=== PATIENT | female | born 1935 | race Two or more races ===

== ENCOUNTER 2017-09-29 18:02 | Emergency (ER) | payer MEDICARE, OTHER ==
[~2017-09-29] VITALS: Ht 160 cm; Wt 70.3 kg
[2017-09-29] MEDS ORDERED: SODIUM CHLORIDE 0.9% 1,000 ML IV ONE (19:30)
[2017-09-29] MEDS ORDERED: cefTRIAXone 1GM/10ml IVPUSH 10 ML IV ONE (19:30)
[2017-09-29 20:28] LABS: Albumin 3.2 g/dL (3.4-5.0); BUN/Creatinine Ratio 27.6; Potassium 4.4 mmol/L (3.5-5.1)
[2017-09-29 20:31] LABS: Basophils # (auto) 0.1 uL; Basophils % (auto) 1.1 % (0.0-2.0); Bilirubin, Total 0.3 mg/dL (0.2-1.0); Eosinophils # (auto) 0.4 uL; Eosinophils % (auto) 4.6 % (0.0-7.0); Hematocrit 43.1 % (36.0-46.0); Hemoglobin 13.8 g/dL (12.2-16.2); Lymphocytes # (auto) 2.6 uL; Lymphocytes % (auto) 27.5 % (10.0-50.0); Mean Corpuscular Hgb Conc. 32.1 g/dL (32.0-36.0); Mean Corpuscular Volume 84.1 fL (80.0-100.0); Mean Platelet Volume 8.1 fL (6.9-10.8); Monocytes # (auto) 0.8 uL; Monocytes % (auto) 8.6 % (0.0-12.0); Neutrophils # (auto) 5.6 uL; Neutrophils % (auto) 58.2 % (37.0-80.0); Platelet Count (auto) 306 10^3/uL (140-450); Total Protein 8.1 g/dL (6.4-8.2); White Blood Cell 9.6 10^3/uL (4.4-10.8)
[2017-09-29 20:47] VITALS: BP 133/89
== END 2017-09-29 21:02 | disposition home or self-care (01) ==
LOC: ER 18:02
DX: J06.9 Acute upper respiratory infection, unspecified (principal); J02.9 Acute pharyngitis, unspecified; I25.2 Old myocardial infarction; J45.909 Unspecified asthma, uncomplicated; Z86.73 Personal history of transient ischemic attack (TIA), and cerebral infarction without residual deficits
CPT/HCPCS: 36415; 71010; 80053; 85025; 96374; 99285; J7030

== ENCOUNTER 2018-12-06 08:09 | Emergency (ER) | payer MEDICARE ==
[~2018-12-06] VITALS: Ht 152.4 cm; Wt 72.6 kg
[2018-12-06 08:51] VITALS: BP 154/86
[2018-12-06 09:09] LABS: Urine WBC None Seen /hpf (0 - 5)
[2018-12-06 09:14] LABS: Basophils # (auto) 0.1 uL; Basophils % (auto) 1.6 % (0.0-2.0); Eosinophils # (auto) 0.5 uL; Eosinophils % (auto) 6.3 % (0.0-7.0); Hematocrit 43.3 % (36.0-46.0); Hemoglobin 14.3 g/dL (12.2-16.2); Lymphocytes # (auto) 1.6 uL; Lymphocytes % (auto) 21.7 % (10.0-50.0); Mean Corpuscular Hemoglobin 27.7 pg (28.0-32.0); Mean Corpuscular Hgb Conc. 32.9 g/dL (32.0-36.0); Mean Corpuscular Volume 84.1 fL (80.0-100.0); Monocytes # (auto) 0.7 uL; Monocytes % (auto) 9.9 % (0.0-12.0); Neutrophils # (auto) 4.6 uL; Neutrophils % (auto) 60.5 % (37.0-80.0); Platelet Count (auto) 293 10^3/uL (140-450); Red Blood Cells 5.15 10^6/uL (4.0-5.20); Red Cell Distribution Width 14.5 % (11.8-14.3); White Blood Cell 7.6 10^3/uL (4.4-10.8)
[2018-12-06 09:23] LABS: Urine Bacteria FEW /hpf (None Seen); Urine Blood Negative /uL (Negative); Urine Specific Gravity 1.005 (1.001-1.035)
[2018-12-06 09:29] LABS: Albumin 3.2 g/dL (3.4-5.0); Calcium 8.9 mg/dL (8.5-10.1); Magnesium 2.4 mg/dL (1.6-2.6); Potassium 3.9 mmol/L (3.5-5.1)
[2018-12-06 09:31] LABS: BUN/Creatinine Ratio 16.9
[2018-12-06 09:36] LABS: Bilirubin, Total 0.8 mg/dL (0.2-1.0)
[2018-12-06] MEDS ORDERED: DEXAMETHASONE SOD PHOS 4 MG/1ML SDV INJ IV ONE (10:15)
[2018-12-06] MEDS ORDERED: IPRATROPIUM BROM 0.5 MG/2.5ML INH SOL NEB ONE (10:15)
[2018-12-06] MEDS ORDERED: ALBUTEROL SULF 2.5 MG/0.5ML(0.5%) NEB SOLN NEB ONE (10:15)
== END 2018-12-06 12:52 | disposition home or self-care (01) ==
LOC: ER 08:10
DX: J45.901 Unspecified asthma with (acute) exacerbation (principal); E46 Unspecified protein-calorie malnutrition; I25.2 Old myocardial infarction; I25.10 Atherosclerotic heart disease of native coronary artery without angina pectoris; Z98.61 Coronary angioplasty status; Z68.31 Body mass index [BMI] 31.0-31.9, adult; Z86.73 Personal history of transient ischemic attack (TIA), and cerebral infarction without residual deficits
CPT/HCPCS: 36415; 71045; 80053; 81001; 83735; 83880; 84484; 85025; 93005; 94640; 94761; 96374; 99284; J1100; J7611; J7644

== ENCOUNTER 2018-12-14 09:53 | Inpatient (IN) | payer MEDICARE ==
[~2018-12-14] VITALS: Ht 157.5 cm; Wt 76.9 kg
[2018-12-14 10:37] LABS: Basophils # (auto) 0.1 uL; Basophils % (auto) 0.6 % (0.0-2.0); Eosinophils # (auto) 0.3 uL; Eosinophils % (auto) 2.4 % (0.0-7.0); Hematocrit 47.4 % (36.0-46.0); Hemoglobin 15.5 g/dL (12.2-16.2); Lymphocytes # (auto) 1.5 uL; Lymphocytes % (auto) 13.8 % (10.0-50.0); Mean Corpuscular Hemoglobin 27.7 pg (28.0-32.0); Mean Corpuscular Hgb Conc. 32.6 g/dL (32.0-36.0); Mean Corpuscular Volume 84.7 fL (80.0-100.0); Monocytes # (auto) 0.8 uL; Monocytes % (auto) 7.7 % (0.0-12.0); Neutrophils # (auto) 8.2 uL; Neutrophils % (auto) 75.5 % (37.0-80.0); Platelet Count (auto) 307 10^3/uL (140-450); Red Blood Cells 5.59 10^6/uL (4.0-5.20); Red Cell Distribution Width 14.3 % (11.8-14.3); White Blood Cell 10.8 10^3/uL (4.4-10.8)
[2018-12-14] MEDS ORDERED: ASPirin 81 mg TAB PO ONE ×2 (10:45→11:30)
[2018-12-14 11:00] LABS: Albumin 3.4 g/dL (3.4-5.0); Anion Gap 7 (5-15); Blood Urea Nitrogen 18 mg/dL (7-18); Calcium 9.4 mg/dL (8.5-10.1); Carbon Dioxide 26 mmol/L (21-32); Chloride 105 mmol/L (98-107); Glucose 162 mg/dL (74-106); Potassium 4.2 mmol/L (3.5-5.1); Sodium 138 mmol/L (136-145)
[2018-12-14 11:05] LABS: Alanine Aminotransferase 21 U/L (13-56); Alkaline Phosphatase 81 U/L (45-117); Aspartate Aminotransferase 15 U/L (15-37); BUN/Creatinine Ratio 18.8; Bilirubin, Total 0.7 mg/dL (0.2-1.0); GFR African American 71 mL/min; GFR Non-African American 59 mL/min; Total Protein 8.5 g/dL (6.4-8.2)
[2018-12-14] MEDS ORDERED: ALBUTEROL SULF 2.5 MG/0.5ML(0.5%) NEB SOLN NEB PRN (11:15)
[2018-12-14] MEDS ORDERED: LACTULOSE 20Gm/30ML SOLN PO PRN (11:15)
[2018-12-14] MEDS ORDERED: PROMETHAZINE HCL 25 MG/ML 1ML IV PRN (11:15)
[2018-12-14] MEDS ORDERED: LORazepam 0.5 MG TAB PO PRN (11:15)
[2018-12-14] MEDS ORDERED: TEMAZEPAM 15 MG CAP PO PRN (11:15)
[2018-12-14] MEDS ORDERED: HYDROcodone-ACET 5/325MG TAB PO PRN (11:15)
[2018-12-14] MEDS ORDERED: MORPHINE SULFATE 4 MG/ML SYR/VIAL IV PRN ×2 (11:15)
[2018-12-14] MEDS ORDERED: NITROGLYCERIN 0.4 MG SL TAB SL PRN (11:15)
[2018-12-14] MEDS ORDERED: ACETAMINOPHEN 500 MG TAB PO PRN (11:15)
[2018-12-14] MEDS ORDERED: PANTOPRAZOLE 40 MG TAB PO ONE (11:30)
[2018-12-14] MEDS ORDERED: ENOXAPARIN SOD 40 MG/0.4 ML SYRINGE SC ONE (11:30)
[2018-12-14] MEDS ORDERED: METOPROLOL TARTRATE 25 MG TAB PO ONE (11:30)
[2018-12-14] MEDS ORDERED: NITROGLYCERIN 0.2MG/HR TOPICAL PATCH TD ONE (11:30)
[2018-12-14] MEDS: DOXYCYCLINE 100MG/250ML 250 ML IV SCH ×2 (12:10→23:35)
[2018-12-14] MEDS: SODIUM CHLORIDE 0.9% 1,000 ML IV SCH (12:11)
[2018-12-14 13:00] VITALS: BP 112/76
--- NOTE | 2018-12-14 13:00 | NUR ---
Telemetry admit from [facility] admitted to Telemetry unit after SBAR received. Patient oriented to JULIO BECERRA, primary RN, unit, room, bed, and unit policies regarding patient care and visiting hours. Patient now on continuous telemetry monitoring, tele box # 7 and telemetry reading on arrival to unit is . Patient placed on bedside oxygen, weighed by bed scale and encouraged to call if they need something. All questions and concerns addressed, patient verbalized understanding.
[2018-12-14] MEDS: ALBUTEROL SULF 2.5 MG/0.5ML(0.5%) NEB SOLN NEB SCH ×2 (13:19→18:40)
[2018-12-14] MEDS: IPRATROPIUM BROM 0.5 MG/2.5ML INH SOL NEB SCH ×2 (13:19→18:40)
[2018-12-14] MEDS ORDERED: ASPI81CH43 PO (13:49)
[2018-12-14 13:53] LABS: INR 0.95 (0.9-1.15); Prothrombin Time 10.2 sec (9.27-12.13)
--- NOTE | 2018-12-14 14:17 | NUR ---
Report given to Evin KESSLER.
--- NOTE | 2018-12-14 14:30 | NUR ---
RECEIVED PATIENT FROM [facility] BY WHEELCHAIR ASSISTED BY JULIO KESSLER. PATIENT IS NOW AT 231. TELEMETRY MONITORING BOX PLACED #24, READING IS SINUS RHYTHM. PATIENT'S SON DENG AT BEDSIDE. PATIENT ON ROOM AIR. INSTRUCTED ON POC, WILL ASSUME CARE.
--- NOTE | 2018-12-14 15:00 | NUR ---
FLU SWAB DONE, SENT TO LAB.
--- NOTE | 2018-12-14 15:30 | NUR ---
Dr. Cordero at bedside. Cardiology consult done. Instructed patient for NPO after midnight for stress test tomorrow. 2d-echo ongoing at bedside.
--- NOTE | 2018-12-14 16:20 | NUR ---
RADIO TECH ASSISTED PATIENT TO NM FOR FIRST PART OF STRESS TEST. SAID NO NEED FOR NPO AFTER MIDNIGHT. 2ND PART WILL BE TOMORROW.
[2018-12-14 16:52] VITALS: BP 117/80
--- NOTE | 2018-12-14 16:53 | NUR ---
LEONIDES FROM IN CALLED AND SAID TO MAKE PATIENT NPO AFTER MIDNIGHT. PATIENT MADE AWARE AND VERBALIZED UNDERSTANDING.
--- NOTE | 2018-12-14 19:25 | NUR ---
Opening Shift Note Assumed care of patient, awake and alert x 4. No S/S of distress/SOB or pain. Bed is in lowest position and locked. Call light within reach. Board updated. Tele box monitor matches monitor and leads are in correct placement. Instructed on POC and to call for assist PRN, will continue to monitor for changes Q1hr and PRN.
--- NOTE | 2018-12-14 19:35 | NUR ---
Be hospitalist because patient has an elevated D-Dimer of 4.21. Patient received Lovenox 40 mg SC once. Patient did not receive CT with contrast of bilateral LE ultrasound. Patient was admitted for chest pain and SOB with green sputum. Patient has a history of A-Fib but is currently sinus rhythm and is not taking medication at home for it. Vitals are all currently WNL. Addendum: 12/14/18 at 1938 by JUANCARLOS ROSENTHAL RN Dr. Cordero saw patient and ordered Cardiolite stress test for tomorrow.
--- NOTE | 2018-12-14 21:08 | NUR ---
Dr. Diaz came to round on patient. Orders given: Cardio consult with Dr. Garzon, Lovenox 40 mg SC BID.
[2018-12-14] MEDS: ENOXAPARIN SOD 40 MG/0.4 ML SYRINGE SC SCH (21:57)
[2018-12-14] MEDS: METOPROLOL TARTRATE 25 MG TAB PO SCH (21:58)
[2018-12-14 22:00] VITALS: BP 105/53
[2018-12-14] MEDS ORDERED: ATORVASTATIN 20 MG TAB PO SCH (22:00)
[2018-12-14 22:28] LABS: Urine Bacteria FEW /hpf (None Seen); Urine Blood Negative /uL (Negative); Urine Specific Gravity 1.011 (1.001-1.035); Urine WBC <1 /hpf (0 - 5)
[2018-12-14 22:50] LABS: Alcohol, Urine < 3.0 mg/dL (0-5); Amphetamine Screen, Urine NEGATIVE (NEGATIVE); Barbiturate Scree,Urine NEGATIVE (NEGATIVE); Benzodiazephine Screen, Urine NEGATIVE (NEGATIVE); Cannabinoid Screen, Urine NEGATIVE (NEGATIVE); Cocaine Screen, Urine NEGATIVE (NEGATIVE); Opiate Scree,Urine NEGATIVE (NEGATIVE); Phencyclidine Screen, Urine NEGATIVE (NEGATIVE)
[2018-12-15] VITALS (8 sets, daily range): BP systolic 105–151; BP diastolic 53–81
[2018-12-15] MEDS: ALBUTEROL SULF 2.5 MG/0.5ML(0.5%) NEB SOLN NEB SCH ×4 (00:24→19:17)
[2018-12-15] MEDS: IPRATROPIUM BROM 0.5 MG/2.5ML INH SOL NEB SCH ×4 (00:24→19:17)
[2018-12-15] MEDS: SODIUM CHLORIDE 0.9% 1,000 ML IV SCH ×2 (00:33→10:09)
--- NOTE | 2018-12-15 07:20 | NUR ---
Opening Shift Note Received report from Carlos Enrique KESSLER. Assumed care of patient, asleep. No S/S of distress/SOB or pain. For stress test 2nd part today. Placed call light within reach, will continue to monitor for changes Q1hr and PRN.
[2018-12-15 07:49] LABS: Cholesterol 169 mg/dL (< 200); Triglycerides 73 mg/dL (< 150)
[2018-12-15 07:51] LABS: HDL Cholesterol 83 mg/dL (40-59); LDL Cholesterol 58 mg/dL (< 100)
[2018-12-15] MEDS ORDERED: ADENOSINE 65 MG in GIVE UN-DILUTED 0 ML IV STA (08:21)
[2018-12-15] MEDS ORDERED: PANTOPRAZOLE 40 MG TAB PO SCH (10:00)
[2018-12-15] MEDS ORDERED: ASPirin 81 mg TAB PO SCH (10:00)
[2018-12-15] MEDS ORDERED: ENOXAPARIN SOD 40 MG/0.4 ML SYRINGE SC SCH (10:00)
[2018-12-15] MEDS ORDERED: NITROGLYCERIN 0.2MG/HR TOPICAL PATCH TD SCH (10:00)
[2018-12-15] MEDS: ENOXAPARIN SOD 40 MG/0.4 ML SYRINGE SC SCH (10:07)
--- NOTE | 2018-12-15 10:07 | NUR ---
STRESS TEST DONE.
[2018-12-15] MEDS: METOPROLOL TARTRATE 25 MG TAB PO SCH (10:08)
[2018-12-15] MEDS: DOXYCYCLINE 100MG/250ML 250 ML IV SCH (10:53)
--- NOTE | 2018-12-15 17:00 | NUR ---
Dr. Garzon at bedside. Said that patient's stress test is ok. Cleared cardio-alvarez, will see the patient again as outpatient. Patient made aware and verbalized understanding.
--- NOTE | 2018-12-15 17:49 | NUR ---
Dr. Diaz at bedside. Received verbal order to discharge the patient. Diagnosis: chest pain. See Dr. Diaz on Tuesday12/19/18. Patient made aware and verbalized understanding.
--- NOTE | 2018-12-15 20:11 | NUR ---
Discharge instructions given as ordered. Encourage to follow up with PMD as instructed. All questions and concerns addressed. Patient verbalized understanding. Medication reconciliation form completed and copy given to patient. IVs removed with catheters intact, pressure dressing applied. Telemetry unit returned to [facility]. Patient taken to vehicle with all personal belongings, accompanied by family member. No distress noted at time of departure.
== END 2018-12-15 20:11 | disposition home or self-care (01) | DRG 152 ==
LOC: ER 09:53 → TELE 11:08 → TELE-WESTW 12:30 → TELE-EAST 14:35
PROVIDERS: ADMIT Internal Medicine; ATTEND Internal Medicine
DX: J06.9 Acute upper respiratory infection, unspecified (principal); J18.9 Pneumonia, unspecified organism; I24.9 Acute ischemic heart disease, unspecified; I48.1 Persistent atrial fibrillation; I25.10 Atherosclerotic heart disease of native coronary artery without angina pectoris; J45.909 Unspecified asthma, uncomplicated; M19.90 Unspecified osteoarthritis, unspecified site; I08.0 Rheumatic disorders of both mitral and aortic valves; I11.9 Hypertensive heart disease without heart failure; Z86.73 Personal history of transient ischemic attack (TIA), and cerebral infarction without residual deficits; Z88.0 Allergy status to penicillin; Z80.3 Family history of malignant neoplasm of breast; Z82.49 Family history of ischemic heart disease and other diseases of the circulatory system; Z95.5 Presence of coronary angioplasty implant and graft; Z79.01 Long term (current) use of anticoagulants
CPT/HCPCS: 36415; 71046; 80053; 80061; 80307; 81001; 82550; 83735; 84484; 85025; 85379; 85610; 85652; 86141; 87070; 87205; 87804; 93017; 93306; 94640; 96365; G0378; J0153; J3490

== ENCOUNTER 2019-02-01 18:05 | Emergency (ER) | payer MEDICARE ==
[~2019-02-01] VITALS: Ht 157.5 cm; Wt 76.7 kg
[~2019-02-01 18:05] MED LIST: ASPI81CH43 PO
[2019-02-01 18:15] VITALS: BP 110/86
[2019-02-01] MEDS ORDERED: EPINEPHrine HCL 0.5 ML NEB NEB ONE (19:00)
[2019-02-01] MEDS ORDERED: methylPREDNISolone SOD SUCC 125 MG/2 ML VL IM ONE (19:00)
[2019-02-01] MEDS ORDERED: cefTRIAXone SOD 1,000 MG VL IM ONE (19:00)
== END 2019-02-01 19:39 | disposition home or self-care (01) ==
LOC: ER 18:05
DX: S70.01XA Contusion of right hip, initial encounter (principal); J06.9 Acute upper respiratory infection, unspecified; Z98.61 Coronary angioplasty status; Z88.0 Allergy status to penicillin; W01.0XXA Fall on same level from slipping, tripping and stumbling without subsequent striking against object, initial encounter; Y93.89 Activity, other specified; Y92.89 Other specified places as the place of occurrence of the external cause; Y99.8 Other external cause status
CPT/HCPCS: 71046; 73502; 94640; 96372; 99283; J0696; J2930

== ENCOUNTER 2019-02-03 04:20 | Emergency (ER) | payer MEDICARE ==
[~2019-02-03] VITALS: Ht 157.5 cm; Wt 74.8 kg
[2019-02-03] MEDS ORDERED: methylPREDNISolone SOD SUCC 125 MG/2 ML VL IV ONE (04:30)
[2019-02-03] MEDS ORDERED: IPRATROPIUM BROM 0.5 MG/2.5ML INH SOL NEB ONE (04:30)
[2019-02-03] MEDS ORDERED: ALBUTEROL SULF 2.5 MG/0.5ML(0.5%) NEB SOLN NEB ONE (04:30)
[2019-02-03 04:46] LABS: Basophils # (auto) 0.1 uL; Basophils % (auto) 0.5 % (0.0-2.0); Eosinophils # (auto) 0 uL; Eosinophils % (auto) 0.3 % (0.0-7.0); Hematocrit 44.1 % (36.0-46.0); Hemoglobin 14.5 g/dL (12.2-16.2); Lymphocytes # (auto) 1.8 uL; Lymphocytes % (auto) 16.6 % (10.0-50.0); Mean Corpuscular Hemoglobin 27.5 pg (28.0-32.0); Mean Corpuscular Hgb Conc. 32.8 g/dL (32.0-36.0); Monocytes # (auto) 1.1 uL; Monocytes % (auto) 10.8 % (0.0-12.0); Neutrophils # (auto) 7.6 uL; Neutrophils % (auto) 71.8 % (37.0-80.0); Platelet Count (auto) 287 10^3/uL (140-450); Red Blood Cells 5.25 10^6/uL (4.0-5.20); Red Cell Distribution Width 14.5 % (11.8-14.3); White Blood Cell 10.6 10^3/uL (4.4-10.8)
[2019-02-03 05:03] LABS: Alanine Aminotransferase 21 U/L (13-56); Albumin 3.4 g/dL (3.4-5.0); Anion Gap 8 (5-15); Aspartate Aminotransferase 15 U/L (15-37); BUN/Creatinine Ratio 37.2; Blood Urea Nitrogen 32 mg/dL (7-18); Carbon Dioxide 28 mmol/L (21-32); Chloride 108 mmol/L (98-107); GFR African American 81 mL/min; GFR Non-African American 67 mL/min; Glucose 112 mg/dL (74-106); Magnesium 2.3 mg/dL (1.6-2.6); Potassium 3.9 mmol/L (3.5-5.1); Sodium 144 mmol/L (136-145)
[2019-02-03 05:08] LABS: Alkaline Phosphatase 76 U/L (45-117); Bilirubin, Total 0.3 mg/dL (0.2-1.0)
[2019-02-03] MEDS ORDERED: SODIUM CHLORIDE 0.9% 1,000 ML IV ONE (07:14)
[2019-02-03 10:29] LABS: Urine Bacteria NONE SEEN /hpf (None Seen); Urine Blood Negative /uL (Negative); Urine Specific Gravity 1.031 (1.001-1.035); Urine WBC <1 /hpf (0 - 5)
[2019-02-03 10:47] VITALS: BP 131/85
== END 2019-02-03 10:49 | disposition home or self-care (01) ==
LOC: ER 04:20
DX: J44.1 Chronic obstructive pulmonary disease with (acute) exacerbation (principal); I10 Essential (primary) hypertension; Z98.61 Coronary angioplasty status
CPT/HCPCS: 36415; 71045; 80053; 81001; 83735; 83880; 84443; 84484; 85025; 93005; 94640; 96374; 99284; J2930; J7611; J7644

== ENCOUNTER 2022-09-08 22:19 | Inpatient (IN) | payer MEDICARE ==
[~2022-09-08] VITALS: Ht 160 cm; Wt 75.1 kg
[2022-09-08 23:28] LABS: Basophils # (auto) 0.1 10 ^3/uL (0-0.2); Eosinophils # (auto) 0.4 10 ^3/uL (0-0.8); Eosinophils % (auto) 5.1 % (0.0-7.0); Hematocrit 39.2 % (36.0-46.0); Hemoglobin 12.9 g/dL (12.2-16.2); Lymphocytes # (auto) 0.8 10 ^3/uL (0.4-5.4); Lymphocytes % (auto) 10.2 % (10.0-50.0); Mean Corpuscular Hemoglobin 30.8 pg (28.0-32.0); Mean Corpuscular Hgb Conc. 33.1 g/dL (32.0-36.0); Mean Corpuscular Volume 93.2 fL (80.0-100.0); Monocytes # (auto) 0.9 10 ^3/uL (0-1.3); Monocytes % (auto) 11.5 % (0.0-12.0); Neutrophils # (auto) 5.4 10 ^3/uL (1.6-8.6); Neutrophils % (auto) 72.2 % (37.0-80.0); Red Cell Distribution Width 15.7 % (11.8-14.3); White Blood Cell 7.4 10^3/uL (4.4-10.8)
[2022-09-08 23:42] LABS: BUN/Creatinine Ratio 13.3; Calcium 9.3 mg/dL (8.5-10.1); Magnesium 2.1 mg/dL (1.6-2.6); Potassium 4.3 mmol/L (3.5-5.1)
[2022-09-08 23:44] LABS: INR 1.07 (0.9-1.15); Partial Thromboplastin Time 27.6 sec (24.6-33.4)
[2022-09-08 23:45] LABS: Bilirubin, Total 0.4 mg/dL (0.2-1.0); Total Protein 7.2 g/dL (6.4-8.2)
[2022-09-09] VITALS (8 sets, daily range): BP systolic 107–130; BP diastolic 66–72
[2022-09-09] MEDS ORDERED: ALBUTEROL SULF 2.5 MG/0.5ML(0.5%) NEB SOLN NEB ONE (00:45)
[2022-09-09] MEDS ORDERED: ACETAMINOPHEN 500 MG TAB PO ONE (01:00)
[2022-09-09] MEDS ORDERED: ALBU108A5 IN (01:00)
[2022-09-09] MEDS ORDERED: IPRATROPIUM BROM 0.5 MG/2.5ML INH SOL NEB ONE (01:00)
[2022-09-09 03:08] LABS: Urine Bacteria FEW /hpf (None Seen); Urine Blood Negative /uL (Negative); Urine Specific Gravity 1.009 (1.001-1.035); Urine WBC 1 /hpf (0 - 5)
[2022-09-09] MEDS ORDERED: NITROGLYCERIN 0.4 MG SL TAB SL PRN (05:15)
[2022-09-09] MEDS ORDERED: MORPHINE SULFATE INJ 2 MG/ml SYRG IV PRN (05:15)
[2022-09-09] MEDS ORDERED: ACETAMINOPHEN 325 MG TAB PO PRN (05:15)
[2022-09-09] MEDS ORDERED: ONDANSETRON HCL 4 MG/2 ML VIAL IV PRN (05:15)
[2022-09-09 06:34] LABS: Basophils # (auto) 0.1 10 ^3/uL (0-0.2); Basophils % (auto) 1.3 % (0.0-2.0); Eosinophils # (auto) 0.2 10 ^3/uL (0-0.8); Hematocrit 40.3 % (36.0-46.0); Lymphocytes # (auto) 0.6 10 ^3/uL (0.4-5.4); Mean Corpuscular Hemoglobin 30.2 pg (28.0-32.0); Mean Corpuscular Hgb Conc. 32.3 g/dL (32.0-36.0); Mean Corpuscular Volume 93.4 fL (80.0-100.0); Monocytes # (auto) 0.7 10 ^3/uL (0-1.3); Monocytes % (auto) 13.2 % (0.0-12.0); Neutrophils # (auto) 3.6 10 ^3/uL (1.6-8.6); Neutrophils % (auto) 69.5 % (37.0-80.0); Red Blood Cells 4.32 10^6/uL (4.0-5.20); Red Cell Distribution Width 15.3 % (11.8-14.3); White Blood Cell 5.2 10^3/uL (4.4-10.8)
[2022-09-09] MEDS: ALBUTEROL SULF 2.5 MG/0.5ML(0.5%) NEB SOLN NEB SCH ×5 (06:35→22:26)
[2022-09-09] MEDS: IPRATROPIUM BROM 0.5 MG/2.5ML INH SOL NEB SCH ×5 (06:35→22:26)
[2022-09-09] MEDS ORDERED: AZITHROMYCIN 500MG/ 250ML 250 ML IV SCH (07:00)
[2022-09-09 07:13] LABS: Albumin 2.9 g/dL (3.4-5.0); Potassium 3.8 mmol/L (3.5-5.1)
[2022-09-09 07:17] LABS: BUN/Creatinine Ratio 14.5; Bilirubin, Total 0.4 mg/dL (0.2-1.0); Total Protein 7.6 g/dL (6.4-8.2)
[2022-09-09] MEDS ORDERED: ENOXAPARIN SOD 40 MG/0.4 ML SYRINGE SC SCH (10:00)
[2022-09-09] MEDS: OSELTAMIVIR 75 MG CAP PO SCH ×2 (10:00→21:12)
[2022-09-09] MEDS ORDERED: ASPI-498 PO (11:28)
[2022-09-09] MEDS: methylPREDNISolone SOD SUCC 125 MG/2 ML VL IV SCH ×2 (19:14→21:12)
[2022-09-09] MEDS: PANTOPRAZOLE 40 MG TAB PO SCH (19:15)
[2022-09-09] MEDS: ENOXAPARIN SOD 80 MG/0.8ML SYRINGE SC SCH ×2 (19:15→22:00)
[2022-09-10] VITALS (7 sets, daily range): BP systolic 99–131; BP diastolic 66–78
[2022-09-10] MEDS: ALBUTEROL SULF 2.5 MG/0.5ML(0.5%) NEB SOLN NEB SCH ×5 (06:09→22:36)
[2022-09-10] MEDS: IPRATROPIUM BROM 0.5 MG/2.5ML INH SOL NEB SCH ×5 (06:09→22:37)
[2022-09-10] MEDS: methylPREDNISolone SOD SUCC 125 MG/2 ML VL IV SCH ×2 (09:44→22:45)
[2022-09-10] MEDS: PANTOPRAZOLE 40 MG TAB PO SCH (09:44)
[2022-09-10] MEDS: AZITHROMYCIN 250 MG TAB PO SCH (09:44)
[2022-09-10] MEDS: OSELTAMIVIR 75 MG CAP PO SCH ×2 (09:45→22:00)
[2022-09-10] MEDS: ENOXAPARIN SOD 80 MG/0.8ML SYRINGE SC SCH ×2 (09:45→22:46)
[2022-09-10] MEDS ORDERED: AZIT250T9 PO (16:45)
[2022-09-10] MEDS ORDERED: APIX2.5T PO (16:45)
[2022-09-10] MEDS ORDERED: TAMIFLU PO (16:45)
[2022-09-11 05:00] VITALS: BP 132/70
[2022-09-11 05:59] LABS: Basophils # (auto) 0 10 ^3/uL (0-0.2); Basophils % (auto) 0.1 % (0.0-2.0); Eosinophils # (auto) 0 10 ^3/uL (0-0.8); Hematocrit 38.6 % (36.0-46.0); Hemoglobin 12.6 g/dL (12.2-16.2); Lymphocytes # (auto) 0.6 10 ^3/uL (0.4-5.4); Lymphocytes % (auto) 6.3 % (10.0-50.0); Mean Corpuscular Hemoglobin 30.1 pg (28.0-32.0); Mean Corpuscular Hgb Conc. 32.7 g/dL (32.0-36.0); Mean Corpuscular Volume 92.1 fL (80.0-100.0); Monocytes # (auto) 0.4 10 ^3/uL (0-1.3); Monocytes % (auto) 4.2 % (0.0-12.0); Neutrophils # (auto) 8.3 10 ^3/uL (1.6-8.6); Neutrophils % (auto) 89.4 % (37.0-80.0); Red Blood Cells 4.19 10^6/uL (4.0-5.20); Red Cell Distribution Width 15.3 % (11.8-14.3); White Blood Cell 9.3 10^3/uL (4.4-10.8)
[2022-09-11] MEDS: IPRATROPIUM BROM 0.5 MG/2.5ML INH SOL NEB SCH ×3 (07:05→15:38)
[2022-09-11] MEDS: ALBUTEROL SULF 2.5 MG/0.5ML(0.5%) NEB SOLN NEB SCH ×3 (07:05→15:38)
[2022-09-11 08:00] VITALS: BP 107/69
[2022-09-11 09:00] VITALS: BP 137/70
[2022-09-11] MEDS: OSELTAMIVIR 75 MG CAP PO SCH (10:00)
[2022-09-11] MEDS ORDERED: APIXABAN 5 MG TAB PO SCH (10:00)
[2022-09-11] MEDS: AZITHROMYCIN 250 MG TAB PO SCH (10:20)
[2022-09-11] MEDS: PANTOPRAZOLE 40 MG TAB PO SCH (10:23)
[2022-09-11] MEDS: methylPREDNISolone SOD SUCC 125 MG/2 ML VL IV SCH (10:23)
[2022-09-11 13:00] VITALS: BP 125/65
[2022-09-11 13:32] VITALS: BP 125/65
[2022-09-11] MEDS ORDERED: GUAI1SOL3 PO (14:49)
[2022-09-13 13:55] LABS: Hepatitis A Total Antibody Positive (Negative)
[2022-09-13 22:15] LABS: Hepatitis C Antibody Negative (Negative)
== END 2022-09-11 16:40 | disposition home or self-care (01) | DRG 194 ==
LOC: EEVIPCON 22:19 → ER 22:19 → TELE 09-09 05:37 → TELE-WESTW 09-09 09:14
PROVIDERS: ADMIT Internal Medicine; ATTEND Internal Medicine
DX: J10.00 Influenza due to other identified influenza virus with unspecified type of pneumonia (principal); J45.901 Unspecified asthma with (acute) exacerbation; I48.91 Unspecified atrial fibrillation; I10 Essential (primary) hypertension; Z20.822 Contact with and (suspected) exposure to COVID-19; I25.10 Atherosclerotic heart disease of native coronary artery without angina pectoris; Z79.82 Long term (current) use of aspirin; Z80.3 Family history of malignant neoplasm of breast; Z82.49 Family history of ischemic heart disease and other diseases of the circulatory system; Z86.73 Personal history of transient ischemic attack (TIA), and cerebral infarction without residual deficits; Z95.5 Presence of coronary angioplasty implant and graft
CPT/HCPCS: 36415; 71045; 80053; 81001; 83735; 83880; 84484; 85025; 85610; 85730; 86708; 86803; 87426; 87804; 93005; 93306; 94640; 96365; 96375; 99291; G0378

== ENCOUNTER 2022-09-15 12:18 | Emergency (ER) | payer MEDICARE ==
[~2022-09-15] VITALS: Ht 162.6 cm; Wt 82.0 kg
[~2022-09-15 12:18] MED LIST changes: +ALBU108A5 IN; +APIX2.5T PO; +ASPI-498 PO; -ASPI81CH43 PO; +AZIT250T9 PO; +GUAI1SOL3 PO; +TAMIFLU PO
[2022-09-15 12:28] VITALS: BP 105/60
[2022-09-15] MEDS ORDERED: BENZ100C19 PO (17:18)
[2022-09-15] MEDS ORDERED: CEPH-510 PO (17:18)
[2022-09-15] MEDS ORDERED: LORA-483 GT (17:18)
== END 2022-09-15 17:35 | disposition home or self-care (01) ==
LOC: ER 12:18 → EEVIPCON 12:18 → ER 17:35
DX: K11.20 Sialoadenitis, unspecified (principal); I10 Essential (primary) hypertension; I48.91 Unspecified atrial fibrillation; Z86.73 Personal history of transient ischemic attack (TIA), and cerebral infarction without residual deficits; Z79.2 Long term (current) use of antibiotics; Z79.82 Long term (current) use of aspirin; Z79.899 Other long term (current) drug therapy; Z88.0 Allergy status to penicillin
CPT/HCPCS: 76536